=== PATIENT | male | born 2000 | race Caucasian/White ===

== ENCOUNTER 2024-03-26 20:31 | Emergency (ER) | payer OTHER ==
[~2024-03-26] VITALS: Ht 162.6 cm; Wt 104.3 kg
[2024-03-26 21:10] VITALS: BP 119/62; PULSE 85; RESP 16; TEMP 97.1; O2SAT 98
[2024-03-26 21:14] VITALS: BP 119/62; PULSE 85; RESP 16; TEMP 97.1; O2SAT 98
== END 2024-03-26 21:49 | disposition home or self-care (01) ==
LOC: EDBD 20:31 → MED 20:31
DX: S61.052A Open bite of left thumb without damage to nail, initial encounter (principal); F17.200 Nicotine dependence, unspecified, uncomplicated; W53.11XA Bitten by rat, initial encounter; Y93.89 Activity, other specified; Y92.89 Other specified places as the place of occurrence of the external cause; Y99.8 Other external cause status
CPT/HCPCS: 99281